=== PATIENT | male | born 1955 | race Caucasian/White ===

== ENCOUNTER 2019-01-20 04:37 | Inpatient (IN) ==
[2019-01-12 12:18] LABS: Appearance,Urine CLEAR; Bacteria,Urine 0 /hpf (0); Bilirubin,Urine NEG (NEG); Color,Urine YELLOW; Culture Indicated,Urine NO; Glucose,Urine (UA) NEGATIVE (NEG); Ketones,Urine NEG (NEG); Leukocyte Esterase,Urine NEG /uL (NEG); Mucus,Urine FEW /hpf (0); Nitrate,Urine NEG (NEG); Protein,Urine 30 mg/dL (NEG); Urine Blood NEG mg/dL (<0.03); Urine RBC < 1 /hpf (0-1); Urine Squamous Epithelial Cell 1 /hpf (0-4); Urine WBC 1 /hpf (0-4); Urobilinogen,Urine NEG (NEG)
[2019-01-12 12:27] LABS: Basophils # (Auto) 0 K/mcL (0.0-0.3); Basophils % (Auto) 0.4 % (0.0-2.0); Eosinophils # (Auto) 0.3 K/mcL (0.0-0.7); Eosinophils % (Auto) 3.7 % (0.0-7.0); Granulocytes % (Auto) 65.5 % (38.0-78.0); Hematocrit 44.3 % (41.0-55.0); Hemoglobin 14.6 g/dL (13.5-16.5); Lymphocytes # (Auto) 1.9 K/mcL (1.5-4.8); Lymphocytes % (Auto) 23.6 % (15.5-49.0); Mean Cell Volume 88.2 fL (80.0-100.0); Mean Corpuscular HGB Conc 32.9 g/dL (31.0-36.0); Mean Platelet Volume 10.9 fL (7.4-10.4); Monocytes # (Auto) 0.6 K/mcL (0.1-0.9); Monocytes % (Auto) 6.8 % (1.0-12.0); Platelet Count 156 K/mcL (140-440); RBC 5.02 M/mcL (4.50-5.90); Red Cell Distribution Width 14.3 % (11.5-14.5); WBC 8.2 K/mcL (4.5-11.0)
[2019-01-12 12:38] LABS: Blood Urea Nitrogen 22 mg/dl (8-23); Calcium 9.3 mg/dl (8.6-10.4); Carbon Dioxide 30 mmol/L (22-30); Chloride 102 mmol/L (96-108); Glomerular Filtration Rate 101; Glucose 198 mg/dL (70-105)
[2019-01-12 12:55] LABS: Estimated Average Glucose(eAG) 131 mg/dL; Hemoglobin A1C 6.2 % HGB (4.0-6.0)
[2019-01-20] MEDS ORDERED: SCOPOLAMINE 1 PATCH PATCH TOPICAL PRN ×2 (05:00)
[2019-01-20] MEDS ORDERED: IPRATROPIUM/ALBUTEROL 3 ML AMPUL.NEB NEB PRN ×3 (05:00→09:23)
[2019-01-20] MEDS ORDERED: 0.9 % SODIUM CHLORIDE 9 ML, KETOROLAC 30 MG, ROPIVACAINE HCL/PF 49.5 ML, EPINEPHrine 0.... IJ SCH (07:00)
[2019-01-20] MEDS ORDERED: PREGABALIN 75 MG CAPSULE PO SCH (07:00)
[2019-01-20] MEDS ORDERED: oxyCODONE 10 MG TAB.ER.12H PO SCH (07:00)
[2019-01-20] MEDS ORDERED: ceFAZolin 2 GM in DEXTROSE 5% IN WATER 50 ML IV SCH (07:00)
[2019-01-20] MEDS ORDERED: GLYCOPYRROLATE 0.2 MG/ML VIAL IV ONE (07:45)
[2019-01-20] MEDS ORDERED: MIDAZOLAM 2 MG/2 ML VIAL IV ONE (07:45)
[2019-01-20] MEDS ORDERED: LIDOCAINE HCL/PF 100 MG/5 ML SYRINGE IV ONE (07:45)
[2019-01-20] MEDS ORDERED: KETAMINE 100 MG/ML ML IV ONE (07:45)
[2019-01-20] MEDS ORDERED: PROPOFOL 200 MG/20 ML VIAL IV ONE (07:45)
[2019-01-20] MEDS ORDERED: TRANEXAMIC ACID 1,000 MG/10 ML VIAL IV ONE (07:45)
[2019-01-20] MEDS ORDERED: ONDANSETRON 4 MG/2 ML VIAL IV ONE (07:45)
[2019-01-20] MEDS ORDERED: PHENYLEPHRINE 10 MG/ML VIAL IV ONE (07:45)
[2019-01-20] MEDS ORDERED: ROPIVACAINE HCL/PF 30 ML VIAL IJ ONE (07:45)
[2019-01-20] MEDS ORDERED: BENZOCAINE/MENTHOL 1 LOZENGE PO PRN (09:16)
[2019-01-20] MEDS ORDERED: ONDANSETRON 4 MG/2 ML VIAL IV PRN ×2 (09:16→09:23)
[2019-01-20] MEDS ORDERED: POLYETHYLENE GLYCOL 3350 17 GM PACKET PO PRN (09:16)
[2019-01-20] MEDS ORDERED: FLEETS ADULT ENEMA PR PRN (09:16)
[2019-01-20] MEDS ORDERED: MAGNESIUM HYDROXIDE 30 ML ORAL.SUSP PO PRN (09:16)
[2019-01-20] MEDS ORDERED: BISACODYL 10 MG SUPP.RECT PR PRN (09:16)
[2019-01-20] MEDS ORDERED: TRANEXAMIC ACID 1,000 MG/10 ML VIAL IV SCH (09:16)
--- NOTE | 2019-01-20 09:16 | Brief Operative Note ---
Date of procedure: 01/20/19 Pre-op diagnosis: Right knee severe DJD Post-op diagnosis: same Procedure: Right robotic assisted total knee arthroplasty Grafts/Implants: Yes ([place] Triathlon CR 3 femur, 3 tibia, 11mm insert, 36 patella) Anesthesia: spinal, GLMA Findings: severe arthritis Complications: none Surgeon: Henry Cantu Material Loader: Jam Murillo Estimated blood loss (cc): 30 Specimens Removed/Pathology: none sent Condition: stable Disposition: PACU
[2019-01-20] MEDS ORDERED: FLUTICASONE PROPIONATE SPRAY.NAS NS PRN (09:20)
[2019-01-20] MEDS ORDERED: CARBOXYMETHYLCELLULOSE SODIUM 1 EACH DROPER.GEL OP PRN (09:20)
[2019-01-20] MEDS ORDERED: fentaNYL 100 MCG/2 ML VIAL IV PRN (09:23)
[2019-01-20] MEDS ORDERED: ACETAMINOPHEN 1,000 MG/100 ML BOTTLE IV ONE (09:23)
[2019-01-20] MEDS ORDERED: LORazepam 2 MG/ML VIAL IV ONE (09:23)
[2019-01-20] MEDS ORDERED: MEPERIDINE 25 MG/ML SYRINGE IV PRN (09:23)
[2019-01-20] MEDS ORDERED: METHOCARBAMOL 1,000 MG/10 ML VIAL IV PRN (09:23)
[2019-01-20] MEDS ORDERED: LACTATED RINGERS 1,000 ML IV SCH (09:30)
[2019-01-20] MEDS ORDERED: CARBOXYMETHYLCELLULOSE SODIUM 1 EACH DROPER.GEL OU PRN (09:30)
--- NOTE | 2019-01-20 10:18 | Operative Note ---
DATE OF OPERATION: 01/20/2019 PREOPERATIVE DIAGNOSIS: Right knee severe osteoarthritis. POSTOPERATIVE DIAGNOSIS: Right knee severe osteoarthritis. PROCEDURE PERFORMED: Right robotic-assisted total knee arthroplasty placing a size 3 cruciate retaining [place] Triathlon femoral component, size 3 tibial baseplate, 11 mm X3 tibial insert with a 36 mm patellar button. SURGEON: Henry Cantu M.D. COASTAL TUG MATE: Francisco Murillo PA-C. The PA's assistance was required for the safe and efficient completion of the entire case. This provider's expertise and technical skill were required throughout the case. The PA assisted with preoperative coordination, intraoperative retraction, wound closure, dressing and splint application, as well as postoperative documentation and care coordination. ANESTHESIA: Spinal plus general. DRAINS: None. SPECIMENS: Bone cuts which were discarded. BLOOD LOSS: 30 mL. POSTOPERATIVE CONDITION: Stable. INDICATIONS FOR SURGERY: This is a 63-year-old male who has had progressive worsening, severe right knee pain. Radiographs showed movd-ay-axaf osteoarthritis. FINDINGS AT SURGERY: He had a large joint effusion with multi-compartment severe arthritis. Post implantation showed satisfactory limb alignment, patellar tracking, and joint stability. PROCEDURE IN DETAIL: The patient had been seen preoperatively and informed consent had been obtained after discussion of risks and benefits of surgery. Risks including, but not limited to, bleeding, possibly requiring transfusion; infection, possibly requiring implant removal and prolonged IV antibiotics; injury to nerves, blood vessels, other surrounding structures; anesthetic risks; incomplete or no resolution of symptoms; stiffness; swelling; pain; instability; DVT and pulmonary embolus risks; and the possibility of needing further revision joint surgery. He understood these risks and wished to proceed. The correct operative site was marked and patient received spinal anesthesia. He was then taken to the operating room and LMA general given. The right lower extremity was then carefully prepped and draped in normal sterile fashion, and a time-out was performed verifying patient name, operative site, and plan. Esmarch was used to exsanguinate the extremity and tourniquet was inflated to 350 mmHg. Ioban was used to cover all skin surfaces and a standard midline incision was made with a scalpel through skin and subcutaneous tissue. Irrisept was irrigated and then a medial parapatellar arthrotomy made. A large joint effusion was suctioned out. Subperiosteal exposure was done of the anterior medial tibia with the Bovie and then anterior horns of the menisci were removed. ACL was transected. The retropatellar fat pad was removed and then we did a freehand resection of the patella. We measured prior to resection. It was 23 mm thick and post-resection was 13 mm. We placed a cut protector. We then made two stab incisions over the femur and two over the tibia, and bicortical pins were placed and the arrays were connected. We did our hip center of rotation check. Green probe was used to identify the medial and lateral malleoli and to do double-checks of our checkpoints. Blue probe was used to do our mapping. Rongeur was used to remove osteophytes. We then checked our flexion-extension gaps. He had a very large lateral extension gap. We did adjustment of implants with ultimately ending up 1 degree valgus on the tibia, 4 degrees of varus on the femur. This gave us 17 mm gaps medial and lateral in flexion and medial in extension. We were a 21 mm gap laterally in extension. We checked our patellar tracking which looked good, so we went ahead and used the robotic arm to make our bone cuts. His tibia was quite small laterally, asymmetric in shape, so we did end up externally rotating a fair amount to not have it overhang anterolaterally. We pinned this into place and used a boss reamer and keel punch to prepare and then a keeled tibial trial was placed. Femur was elevated and curved osteotome and curettes were used to remove posterior osteophytes. Femoral component was impacted and pinned and then peg holes drilled. A 9 insert trial was placed. The knee was taken into extension. He almost went into hyperextension. This was similar to his preoperative motion. We went ahead and sized the patella to a 36. Peg holes were drilled. A patellar trial was placed. This covered the bone completely so no facetectomy was needed. We checked our patellar tracking which was good, so we went ahead and removed trial implants. Definitive implants were opened except for the tibial insert. Irrisept was irrigated in the joint. Antibiotic cement was mixed. After a minute we pulse lavaged copiously with saline and then CO2 gun used to clean and dry the cancellous bone surfaces. [place] with gentamicin was used to cement the tibia. Excess cement removed. We then cemented the femur and excess cement removed. The 9 insert trial was placed and the knee was taken into extension and the patellar button was cemented. While cement was hardening, we removed our checkpoints irrigated with Irrisept. We checked our extension and again we were about 1 degree of hyperextension. While cement was hardening and the joint was filled Irrisept, I injected pain cocktail into the pericapsular and subcutaneous tissues. Once cement had fully hardened, we flexed the knee up and removed the insert trial. Excess cement was removed with an osteotome. Due to the laxity, I chose to increase our insert size to an 11, which was opened. I injected pain cocktail into the posterior medial capsule and then irrigated the tray with Irrisept. The insert trial was then impacted. The knee did not hyperextend, so we went ahead and filled the joint with Irrisept, after a minute pulse lavaged with saline. The knee was placed in about 45 degrees of flexion. Interrupted #2 FiberWire [id number] were used around the superior quadrant of the patella, interrupted #1 Vicryl [id number] around the inferior quadrant. Running #1 Vicryl was used for patellar tendon and quad tendon. A final Irrisept irrigation was done, after a minute pulse lavage with saline, and then 2-0 Monocryl used for subcutaneous and meri for skin. Xeroform and sterile dressing were applied. Tourniquet was released and patient was awakened, extubated, and transferred to recovery in stable condition. KAREEM:violeta Job ID: [id number] Doc ID: [id number] Henry Cantu MD
--- NOTE | 2019-01-20 10:38 | XRay Report ---
CLINICAL INFORMATION: Post-op total knee. COMPARISON: None. FINDINGS: Total knee prostheses is anatomically aligned. No osseous abnormality. Periarticular soft tissue swelling seen as expected IMPRESSION: Negative Interpreted and Authenticated by: Ishan Bella 01/20/19
[2019-01-20] MEDS: DIVALPROEX 125 MG CAP.SPRINK PO SCH (11:14)
[2019-01-20] MEDS: 0.9 % SODIUM CHLORIDE 1,000 ML IV SCH ×2 (11:15→21:37)
[2019-01-20] MEDS: KETOROLAC 30 MG/ML VIAL IV SCH ×3 (11:18→23:57)
[2019-01-20] MEDS: 0.9 % SODIUM CHLORIDE 10 ML SYRINGE IV SCH ×2 (12:04→21:37)
[2019-01-20] MEDS: HYDROcodone/APAP 10/325MG TABLET PO PRN ×4 (13:13→21:32)
[2019-01-20] MEDS: ceFAZolin 1 GM VIAL IV SCH ×2 (16:52→23:58)
[2019-01-20] MEDS: LOSARTAN 50 MG TABLET PO SCH (18:53)
[2019-01-20] MEDS ORDERED: SENNOSIDES 1 TABLET PO SCH (21:00)
[2019-01-20] MEDS: ASPIRIN 81 MG TAB.CHEW PO SCH (21:32)
[2019-01-20] MEDS: DOCUSATE SODIUM 100 MG CAPSULE PO SCH (21:33)
[2019-01-21] MEDS: HYDROcodone/APAP 10/325MG TABLET PO PRN ×3 (01:43→10:44)
[2019-01-21] MEDS: 0.9 % SODIUM CHLORIDE 10 ML SYRINGE IV SCH (05:08)
[2019-01-21] MEDS: KETOROLAC 30 MG/ML VIAL IV SCH (05:08)
[2019-01-21] MEDS: DIVALPROEX 125 MG CAP.SPRINK PO SCH (07:10)
[2019-01-21] MEDS: LOSARTAN 50 MG TABLET PO SCH (07:11)
--- NOTE | 2019-01-21 07:38 | Discharge Summary ---
Providers - Providers Patient information: Note initiated : 01/21/19 at 7:36 am Service Date, if different from initiated Date: [] Patient: Jagjit Saldana 63 y/o M admitted on 01/20/19 for Right Total Knee Arthroplasty Curly. Chief Complaint: [] Discharge date: 01/21/19 Hospitalization Hospital Course: Pt was admitted for a TKA. Spent 1 night on the floor for IV pain meds, IV abx, and PT. Will f/u in 2 weeks. ASA for DVT prophylaxis. Discharge diagnosis: R TKA. Exam - Exam Clean and dry: Yes Weight bearing status: as tolerated Ortho Discharge - TKA - Patient Instructions Diet: Regular Diet Activity: activity as tolerated Total Knee Protocol: For Total Knee: Start ROM OTIS with stationary bike or rocking chair. Work on gaining full extension of knee. Posterior dislocation precautions provided. Hip abductor strengthening and gait training instructions provided. Apply Cryocuff as instructed. Dressing Care: May shower in 2 days - Follow Up Plan Disposition: Home, Self-Care Prognosis: Good Rehab Potential: Good Overall status at discharge: patient is back to baseline - Orders For Discharge Prescriptions: Aspirin 81 mg PO BID #30 tab.chew HYDROcodone/APAP 10/325MG [Anderson 10-325Mg] 1 - 2 tab PO Q4HP PRN #90 tab PRN Reason: Pain Level 3-6 Pending Studies Resuscitation Status Full Code Diet Consistent Carbohydrate Diet Start FriJan 20 918 Hydrocodone Bitart/Acetaminophen (Anderson 10/325mg) 0 tab PO Q4HP PRN PRN Reason: PAIN LEVEL 3-6 Last Admin: 01/21/19 05:08 Dose: 1 tab Documented by: Admin: 01/21/19 01:43 Dose: 1 tab Documented by: Admin: 01/20/19 21:32 Dose: 1 tab Documented by: Admin: 01/20/19 19:03 Dose: 1 tab Documented by: Admin: 01/20/19 14:41 Dose: 1 tab Documented by: Admin: 01/20/19 13:13 Dose: 1 tab Documented by: IGOR Aspirin (Aspirin) 81 mg PO BID AMARI Last Admin: 01/20/19 21:32 Dose: 81 mg Documented by: SENTHIL Divalproex Sodium (Depakote Sprinkles) 250 mg PO BID@0700,1200 [facility] Last Admin: 01/21/19 07:10 Dose: 250 mg Documented by: Admin: 01/20/19 11:14 Dose: 250 mg Documented by: IGOR Docusate Sodium (Colace) 100 mg PO BID [facility] Last Admin: 01/20/19 21:33 Dose: 100 mg Documented by: SENTHIL Ketorolac Tromethamine (Toradol) 30 mg IV Q6 [facility] Stop: 01/22/19 06:01 Last Admin: 01/21/19 05:08 Dose: 30 mg Documented by: Admin: 01/20/19 23:57 Dose: 30 mg Documented by: Admin: 01/20/19 16:53 Dose: 30 mg Documented by: Admin: 01/20/19 11:18 Dose: 30 mg Documented by: IGOR Losartan Potassium (Cozaar) 50 mg PO BID@0700,1900 [facility] Last Admin: 01/21/19 07:11 Dose: 50 mg Documented by: Admin: 01/20/19 18:53 Dose: 50 mg Documented by: SENTHIL Morphine Sulfate (Morphine) 0 mg IV Q1HP PRN PRN Reason: PAIN LEVEL > 6 Last Admin: 01/20/19 14:44 Dose: 4 mg Documented by: IGOR Ondansetron HCl (Zofran) 4 mg IV Q4HP PRN PRN Reason: Nausea And Vomiting Last Admin: 01/20/19 17:23 Dose: 4 mg Documented by: IGOR Senna (Senokot) 2 tab PO HS [facility] Last Admin: 01/20/19 21:33 Dose: 2 tab Documented by: SENTHIL Sodium Chloride (Saline Flush) 10 ml IV Q8 [facility] Last Admin: 01/21/19 05:08 Dose: 10 ml Documented by: Admin: 01/20/19 21:37 Dose: 10 ml Documented by: Admin: 01/20/19 12:04 Dose: Not Given Documented by: IGOR Shift Summary 01/21/19 03:45 Shift Summary by Ashleigh De Leon Slept off & on thru the night. Up to BR w/SBA & FWW. Voiding well; has history of hesitancy & retention issues. Has ambulated the halls 3 times tonight; says moving the knee helps w/stiffness & pain. Has been using cryo cuff. PO pain meds given 3 times, no PRN IV meds. Will probably d/c home today after PT. Initialized on 01/21/19 03:45 - END OF NOTE
[2019-01-21] MEDS: DOCUSATE SODIUM 100 MG CAPSULE PO SCH (08:44)
[2019-01-21] MEDS: ASPIRIN 81 MG TAB.CHEW PO SCH (08:44)
[2019-01-21] MEDS ORDERED: GLUCOSAMINE/CHONDROITIN SULF A 1 CAP CAPSULE PO SCH (09:00)
[2019-01-21] MEDS ORDERED: amLODIPine 10 MG TABLET PO SCH (09:00)
== END 2019-01-21 11:35 | disposition home or self-care (01) | DRG 470 ==
LOC: MEDSUR 04:37
PROVIDERS: ADMIT Orthopaedic Surgery; ATTEND Orthopaedic Surgery